=== PATIENT | female | born 1960 | race American Indian/Alaskan Native ===

== ENCOUNTER 2020-09-25 13:15 | Outpatient (CLI) | payer OTHER ==
--- NOTE | 2020-09-25 17:25 | XRay Report ---
LEFT FOOT 2 VIEW(S) INDICATION / CLINICAL INFORMATION: LEFT FOOT PAIN. COMPARISON: None available. FINDINGS: BONES / JOINT(S): No acute fracture or subluxation. Periosteal reaction along the lateral aspect of t he shaft of the 4th metatarsal could indicate chronic stress reaction. Small, noninflammatory plantar calcaneal heel spur. SOFT TISSUES: No significant abnormality. ADDITIONAL FINDINGS: None. Signer Name: Coleman Martin MD Signed: 09/25/2020 5:20 PM Workstation Name: [id number]
--- NOTE | 2020-09-25 17:26 | XRay Report ---
RIGHT SHOULDER 3 VIEW(S) INDICATION / CLINICAL INFORMATION: RIGHT SHOULDER PAIN. COMPARISON: None available. FINDINGS: BONES / JOINT(S): No acute fracture or subluxation. 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 SOFT TISSUES: No significant abnormality. ADDITIONAL FINDINGS: None. Signer Name: Coleman Martin MD Signed: 09/25/2020 5:21 PM Workstation Name: [id number]
== END 2020-09-25 13:16 | disposition home or self-care (01) ==
LOC: XRAY 13:15
PROVIDERS: ATTEND Internal Medicine
DX: M19.011 Primary osteoarthritis, right shoulder (principal); M79.672 Pain in left foot

== ENCOUNTER 2020-10-27 11:19 | Outpatient (CLI) | payer OTHER ==
--- NOTE | 2020-10-27 12:22 | XRay Report ---
RIGHT KNEE 2 VIEWS INDICATION / CLINICAL INFORMATION: RIGHT KNEE PAIN. COMPARISON: None available. FINDINGS: BONES/JOINT(S): No acute fracture or subluxation. Mild tricompartmental DJD. No significant joint eff usion. SOFT TISSUES: No significant abnormality. ADDITIONAL FINDINGS: None. Signer Name: Lenny Christina MD Signed: 10/27/2020 12:18 PM Workstation Name: [id number]
== END 2020-10-27 11:20 | disposition home or self-care (01) ==
LOC: XRAY 11:19
PROVIDERS: ATTEND Internal Medicine
DX: M17.11 Unilateral primary osteoarthritis, right knee (principal)